=== PATIENT | male | born 1990 | race Caucasian/White ===

== ENCOUNTER → 2019-08-07 14:03 | Outpatient (CLI) | payer OTHER | END | disposition home or self-care (01) | LOC: D.MRI 14:03 | PROVIDERS: ATTEND Nurse Practitioner Family | DX: M17.4 Other bilateral secondary osteoarthritis of knee (principal) ==

== ENCOUNTER → 2021-01-11 19:00 | Outpatient (CLI) | payer OTHER | END | disposition home or self-care (01) | LOC: D.RAD 19:00 | DX: M25.562 Pain in left knee (principal); M25.569 Pain in unspecified knee; G89.4 Chronic pain syndrome; M25.561 Pain in right knee ==